=== PATIENT | female | born 1965 | race Caucasian/White ===

== ENCOUNTER 2017-02-24 07:58 | Day surgery (SDC) | payer OTHER ==
[~2017-02-24 07:58] MED LIST: FENTANYL 250 MCG/5 ML AMP IV PRN; LACTATED RINGERS 1,000 ML IV SCH; MIDAZOLAM HCL 5 MG/5 ML VIAL IV PRN
[2017-02-24] MEDS ORDERED: LACTATED RINGERS 1,000 ML ONE (08:07)
[2017-02-24] MEDS ORDERED: IV START KIT ONE (08:07)
[2017-02-24] MEDS ORDERED: FENTANYL 250 MCG/5 ML AMP ONE (08:51)
[2017-02-24] MEDS ORDERED: MIDAZOLAM HCL 5 MG/5 ML VIAL ONE (08:51)
== END 2017-02-24 10:10 | disposition home or self-care (01) ==
LOC: SDC 07:58
PROVIDERS: ATTEND Internal Medicine Gastroenterology
PROC: 0DJD8ZZ Inspection of Lower Intestinal Tract, Via Natural or Artificial Opening Endoscopic (ICD-10-PCS; principal; 2017-02-24)
DX: Z12.11 Encounter for screening for malignant neoplasm of colon (principal); Z87.440 Personal history of urinary (tract) infections; Z88.2 Allergy status to sulfonamides
CPT/HCPCS: 45378; J3010; J2250; J7120